=== PATIENT | male | born 1995 | race Caucasian/White ===

== ENCOUNTER 2025-04-08 12:48 | Emergency (ER) | payer OTHER, SELFPAY ==
[2025-04-08 12:48] VITALS: BMI 35.5
[2025-04-08 12:52] VITALS: BP 132/63
[2025-04-08 13:32] VITALS: BP 111/71
--- NOTE | 2025-04-08 13:55 | ED.GENMED ---
History of Present Illness
General
Chief Complaint: Facial Problem
Source: family (Mother at bedside)
Exam Limitations: non verbal-adult (Severe autism)
Time Seen by Provider: 04/08/25 13:16
History of Present Illness
History of Present Illness:
29-year-old male with severe autism, history of seizures presents with his mother who states he has had a left mouth and cheek facial tic for over a year now that seems to be getting worse. His neurologist at [facility] evaluated him and suggested to
observe the tics and ordered a head CT which is scheduled for 04/18 but mom does not want to wait. Pt is alert, playing on tablet, rocking back and forth frequently loud bird calling sounds, mom states acting at his baseline.
Past History
Past History
ED Past Medical History: Seizures and Other (Autism)
Social History
Tobacco: Non-smoker
Alcohol: None
Drug: None
Personal: Single
Living: other (Lives in detention)
Review of Systems
Review of Systems
Allergies reviewed?: Yes
All Other Systems: ROS reviewed and negative except as documented in HPI and ROS
Phy Exam
Physical Exam
Physical Exam:
GENERAL: No acute distress. Alert, nonverbal
CONSTITUTIONAL: Afebrile.
EYES: clear, conjunctivae normal
ENMT: moist mucus membranes
RESPIRATORY: Regular respirations, nonlabored, lungs clear.
CARDIOVASCULAR: Regular rate and rhythm, no murmurs, no rubs.
GI: Soft
MUSCULOSKELETAL: Moves with ease. Well perfused.
SKIN: Warm, dry, pink
PSYCH: Severely autistic
NEUROLOGIC: Awake, alert, at baseline, making frequent whooping sounds. There are mouth movements, frequently making like a big smile, showing his teeth, with the left side of his mouth raising higher than the right side. The entire mouth is
involved, just more prominent on the left.
Course
Orders/Labs/Results
Orders:
Orders
04/08/25 13:54
CT Head W/o Iv Contrast Urgent
Comment:
Reason For Exam: left mouth/cheek tic
Vital Signs
Initial and Last Documented VS:
Initial Vital Signs
Pulse Resp BP Pulse Ox
88 20 132/63 99
04/08/25 12:52 04/08/25 12:52 04/08/25 12:52 04/08/25 12:52
Last Documented Vital Signs
Temp Pulse Resp BP Pulse Ox
98.1 F 78 16 111/71 100
04/08/25 13:32 04/08/25 13:32 04/08/25 13:32 04/08/25 13:32 04/08/25 13:56
MDM/Problems Addressed
MDM/Problems Addressed:
29-year-old male with severe autism, history of seizures presents with his mother who states he has had a left mouth and cheek facial tic for over a year now that seems to be getting worse. His neurologist at [facility] evaluated him and suggested to
observe the tics and ordered a head CT which is scheduled for 04/18 but mom does not want to wait. Pt is alert, playing on tablet, rocking back and forth frequently loud bird calling sounds, mom states acting at his baseline.
4:30 PM:
Head CT radiology report read: No acute intracranial abnormality noted. Copy of CAT scan report given to mom: He I told him that 33 if she can get some ibuprofen
*Pulse Oximetry
SaO2: 100
Oxygen Mode of Delivery: Room air
Patient hypoxic: no
*Critical Care Note
Total Time (30-74mins, 75-104mins- exclusive of procedures): Not Applicable
ED Attending Note
-
Portions of this chart may have been created with voice recognition software.� Occasional wrong word or��sound alike� substitutions may have occurred due to the inherent limitations of voice recognition software.
Discharge Plan
Departure
Patient Disposition: Home (Routine Discharge)
Date of Disposition: 04/08/25
Time of Disposition: 16:30
Patient with high blood pressure during this ER visit?: No
Condition: Good
Discharge Problem:
Facial tic
Prescriptions:
No Action
clonidine HCl 0.1 mg Tablet
0.1 mg PO HS
diphenhydramine HCl [Benadryl] 50 mg Capsule
50 mg PO Q6HPRN PRN (Reason: allergies)
levetiracetam [Keppra] 500 mg Tablet
2,000 mg PO BID
albuterol sulfate 1.25 mg/3 mL Solution For Nebulization
1.25 mg INHALATION R Q4HPRN PRN (Reason: sob)
clonazepam 0.5 mg Tablet
0.5 mg PO BID@1400,2000
clonazepam 1 mg Tablet
1 mg PO BID@0800,2000
loperamide 2 mg Tablet
2 mg PO TIDPRN PRN (Reason: diarrhea)
miconazole nitrate [Zeasorb AF] 2 % Powder
1 applic TOPICAL DAILYPRN PRN (Reason: fungal rash)
Theragen Tablet
1 tab PO DAILY
divalproex [Depakote] 500 mg Tablet,Delayed Release (Dr/Ec)
1,000 mg PO BID
zonisamide 100 mg Capsule
200 mg PO DAILY@0800
zonisamide 100 mg Capsule
400 mg PO HS
calcium carbonate [Calcium 500] 500 mg calcium (1,250 mg) Tablet
500 mg PO BID
benzonatate 100 mg Capsule
100 mg PO TIDPRN PRN (Reason: cough)
levothyroxine [Synthroid] 125 mcg Tablet
125 mcg PO DAILY@0700
ibuprofen 200 mg Tablet
400 mg PO Q8HPRN PRN (Reason: mild pain)
guaifenesin 1,200 mg Tablet Extended Release 12hr
1,200 mg PO BIDPRN PRN (Reason: cough)
Spiro 3 Fish Oil 684-1,200 mg Capsule,Delayed Release(Dr/Ec)
2 cap PO BID
cholecalciferol (vitamin D3) [Vitamin D3] 50 mcg (2,000 unit) Tablet
50 mcg PO DAILY
Valtoco 15 mg/2 spray (7.5/0.1mL x 2) Mize,Non-Aerosol
15 mg INTRANASAL DAILYPRN PRN (Reason: seizures>5 minutes)
L-Carnitine 500 mg Capsule
1,000 mg PO TID
Referrals:
Your Neurologist [Other] - Keep scheduled appt
Michael Jacobs MD [Family Provider]
Activity Restrictions/Additional Instructions:
As we discussed, nothing worrisome on Yasir's head CT
Follow-up with your neurologist as scheduled
Interventions
Interventions:
*Risk Screen - Suicide Last Done: 04/08/25 12:52
*General Assessment Last Done: 04/08/25 13:31
*Neglect/Abuse Screening Last Done: 04/08/25 13:31
*ED- Fall Risk Assessment Last Done: 04/08/25 13:30
*ED COVID-19 Vaccine History Last Done: 04/08/25 13:30
*ED Influenza Vaccine History Last Done: 04/08/25 13:30
ED- Neurological Assessment Last Done: 04/08/25 13:28
ED-Skin Assessment Last Done: 04/08/25 13:30
Discharge Date and Time
Print Language: MALTESE
== END 2025-04-08 17:28 | disposition home or self-care (01) ==
LOC: EMR 12:48
PROVIDERS: EMERGENCY PHYSICIAN Student in an Organized Health Care Education/Training Program; FAMILY PHYSICIAN Family Medicine
DX: F95.9 Tic disorder, unspecified (principal); F84.0 Autistic disorder
CPT/HCPCS: 99284; 70450